=== PATIENT | female | born 1940 | race Caucasian/White ===

== ENCOUNTER → 2016-12-22 | Outpatient (CLI) | payer OTHER ==
[~2016-12-22] MED LIST: ASPIRIN PO; CALCIUM + D PO; CALTRATE PLUS T1 TAB PO; EVISTA60 MG PO; FISH OIL PO; FOSAMAX PO; MULTI-VITAMIN1 TAB PO; NOLVADEX PO; TYLOX 5/500 CAP1 CAP PO; TYLOX1 CAP 5/50; VYTORIN 10/80 T1 TAB PO; ZOCOR PO
--- NOTE | ~2016-12-22 | MY11 ---
[facility] A Service of [facility] RADIOLOGY TEXT RESULTS PATIENT: ELVIRA TUCKER LOCATION: [facility] : 38 UNIT #: [id number] AGE: [address]: Deysi Segundo APRN SEX: F ORDER DR: [id number] [facility] [address] [place], [place] [address] [id number] O MR#: [id number] Acc #: [id number] NAME: ELVIRA TUCKER : 1940 SEX: F STUDY DATE/TIME: 12/22/2016 10:45 UNIT: [facility] ROOM: STUDY DESCRIPTION: MY Mammogram Screening Dig Joselito Attending Physician: Deysi Segundo A.P.R.N. Referring Physician: Deysi Segundo A.P.R.N. Ordering Physician: Deysi Segundo A.P.R.N. Primary Care Physician: Deysi Segundo A.P.R.N. MEDICAL IMAGING REPORT This report is preliminary unless electronic signature is present EXAM Bilateral Digital Screening Mammogram with CAD INDICATION Breast cancer screening. 76-year-old asymptomatic female with a history of left breast cancer treated with a lobectomy and radiation therapy in 2007. COMPARISON December 07, 2015, December 05, 2014, November 30, 2013, November 16, 2012, November 12, 2011, November 08, 2010, November 09, 2009, May 07, 2009, November 08, 2008 and December 17, 2007. FINDINGS The breast tissue is heterogeneously dense, which could obscure detection of small masses. No suspicious findings are seen. IMPRESSION No mammographic evidence of malignancy. Given the patient's breast density, consider 3D screening mammography in the future. A result letter will be sent to the patient. Patients over the age of 40 are entered into a reminder system with target due date for the next mammogram. BIRADS: 1 Negative [facility] A Service of [facility] RADIOLOGY TEXT RESULTS PATIENT: ELVIRA TUCKER LOCATION: [facility] : 38 UNIT #: [id number] AGE: [address]: Deysi Segundo APRN SEX: F ORDER DR: Dictated by... Carroll Smith M.D. THIS IS AN ELECTRONICALLY VERIFIED REPORT Carroll Smith M.D. at 12/24/2016 10:56 AM SEEMA/hitesh TD: 12/22/2016 13:54 JOB #: [id number] MEDICAL IMAGING REPORT Page 1 of 1 COPY
== END | disposition home or self-care (01) ==
LOC: CWCC 10:20
DX: Z12.31 Encounter for screening mammogram for malignant neoplasm of breast (principal); Z85.3 Personal history of malignant neoplasm of breast; Z98.890 Other specified postprocedural states
CPT/HCPCS: G0202